=== PATIENT | male | born 1960 | race Caucasian/White ===

== ENCOUNTER 2021-12-21 16:50 | Emergency (ER) | payer OTHER ==
[~2021-12-21] VITALS: Ht 182.9 cm; Wt 108.0 kg
[2021-12-21 21:06] LABS: HEMATOCRIT 41.5 % (39.0-50.0); HEMOGLOBIN 13.9 g/dl (14.0-18.0); IMMATURE GRANULOCYTES 0.6 % (0.0-5.0); MEAN CORPUSCULAR HGB 30.8 pG CALC (26.0-32.0); MEAN CORPUSCULAR HGB CONC 33.5 g/dL CAL (32.0-36.0); NEUT# 8.66 thou/uL (1.82-7.42); RED BLOOD COUNT 4.51 mill/uL (4.70-6.10); RED CELL DISTRI WIDTH 13.3 % (11.5-15.5)
[2021-12-21 21:06] LABS: URINE BLOOD DIPSTICK TRACE-LYSED (NEGATIVE); URINE COLOR BROWN; URINE GLUCOSE - DIPSTICK NEGATIVE (NEGATIVE); URINE KETONE NEGATIVE (NEGATIVE); URINE LEUK ESTERASE NEGATIVE (NEGATIVE); URINE PH 5.5 (4.5-8.0); URINE PROTEIN - DIPSTICK 100 mg/dL (NEG-TRACE); URINE SPECIFIC GRAVITY >=1.030; URINE UROBILINOGEN - DIPSTICK 0.2 E.U./dL (0.2)
[2021-12-21 21:07] LABS: URINE BILIRUBIN - DIPSTICK LARGE (NEGATIVE)
[2021-12-21 21:08] LABS: URINE NITRITE - DIPSTICK NEGATIVE (Negative)
[2021-12-21 21:13] LABS: URINE AMORPH SEDIMENT MODERATE hpf (NONE-FER); URINE FINE GRAN CAST FEW lpf
[2021-12-21 21:22] LABS: ALBUMIN 3.9 g/dL (3.2-5.0); ALKALINE PHOSPHATASE 91 u/l (38-126); AMYLASE 57 u/l (30-110); ANION GAP 18 (6-22 (CALC)); BILIRUBIN, TOTAL 8.5 mg/dL (0.0-1.4); BUN 22 mg/dL (9-20); BUN/CREATININE RATIO 14 (12-20 (CALC)); CARBON DIOXIDE 23 mmol/l (22-30); CHLORIDE 96 mmol/l (95-108); CREATININE 1.5 mg/dL (0.7-1.3); GFR 48 ML/MIN (>=60 (CALC)); GFR FOR AFR.AMER. 58 ML/MIN (>=60 (CALC)); LIPASE 30 u/l (23-300); SGOT/AST 130 u/l (17-59); SODIUM 134 mmol/l (137-146); TOTAL PROTEIN 7.3 g/dL (6.3-8.2)
[2021-12-21 21:34] LABS: MYOGLOBIN 45 ng/mL (0 - 121)
[2021-12-21] MEDS ORDERED: AMLOD/BENAZP1 CA5 PO (22:16)
[2021-12-21] MEDS ORDERED: METFORMIN HCL1000 M1 PO (22:17)
[2021-12-21] MEDS ORDERED: COREG6.25 MG PO (22:17)
[2021-12-21] MEDS ORDERED: SIMVASTATIN10 MG PO (22:18)
[2021-12-21] MEDS ORDERED: PRILOSEC20 MG/CAP PO (22:18)
[2021-12-21] MEDS ORDERED: HYDROCHLOROT25 MG PO (22:19)
[2021-12-21] MEDS ORDERED: GLIPIZIDE ER2.5 MG PO (22:20)
[2021-12-22 00:30] LABS: DIRECT BILIRUBIN 3.9 mg/dl (0.0-0.3)
[2021-12-22 01:19] LABS: ACT PARTIAL THROMBO TIME 29.6 SECONDS (20.0-32.5); INTERNATIONAL NORMALIZED RATIO 1.1 RATIO (0.7-1.3)
[2021-12-22 01:31] VITALS: BP 119/66
== END 2021-12-22 01:30 | disposition left against medical advice (07) | DRG 392 ==
LOC: ED 16:50
PROVIDERS: Family Medicine
DX: R10.11 Right upper quadrant pain (principal); R17 Unspecified jaundice; I10 Essential (primary) hypertension; E11.9 Type 2 diabetes mellitus without complications; K21.9 Gastro-esophageal reflux disease without esophagitis; Z79.84 Long term (current) use of oral hypoglycemic drugs; Z20.822 Contact with and (suspected) exposure to COVID-19; Z91.19 Patient's noncompliance with other medical treatment and regimen
CPT/HCPCS: Q9967